=== PATIENT | male | born 1970 | race Caucasian/White ===

== ENCOUNTER 2022-03-29 11:47 | Emergency (ER) | payer SELFPAY ==
[~2022-03-29] VITALS: Ht 160 cm; Wt 56.7 kg
[2022-03-29 11:58] VITALS: BP 106/63
== END 2022-04-04 16:25 | disposition left against medical advice (07) ==
LOC: ER 11:51
DX: Z53.21 Procedure and treatment not carried out due to patient leaving prior to being seen by health care provider (principal)
CPT/HCPCS: 71100-TC; 73120-TC